=== PATIENT | male | born 1945 | race Caucasian/White ===

== ENCOUNTER 2018-03-01 06:47 | Day surgery (SDC) | payer OTHER ==
[2018-03-01] MEDS ORDERED: VERSED 5 MG/5 ML IV ONE (06:48)
[2018-03-01] MEDS ORDERED: DEMEROL 50 MG SDV IV ONE (06:48)
[2018-03-01 07:35] VITALS: PULSE 51
[2018-03-01] MEDS ORDERED: Sodium Chloride 0.9% 1000 ML 1,000 ML ONE ×2 (07:41→11:21)
[2018-03-01] MEDS ORDERED: Lactated Ringers 1,000 ML IV SCH (08:00)
[2018-03-01 12:28] VITALS: O2SAT 95
--- NOTE | 2018-03-01 12:54 | OP ---
SURGERY DATE/TIME: 03/01/2018 1117 PREOPERATIVE DIAGNOSIS: CT scan showing cecal mass. POSTOPERATIVE DIAGNOSIS: Cecal mass. PROCEDURE: Colonoscopy to cecum with cold biopsy x1. SURGEON: David Lay M.D. BACK TENDER: Medical Student III. ANESTHESIA: IV sedation 15 minutes monitored. FINDINGS: Cecal mass. Severe diverticulosis of the sigmoid. Moderate internal hemorrhoids. INDICATION: The patient has a CT with apparently a cecal mass. DESCRIPTION OF PROCEDURE: Taken to the endoscopy. Left lateral decubitus position. IV sedation titrated. Oximetry kept over 90%. Scope introduced. Scope advanced to the cecum. The ileocecal valve was basically replaced by a mass. It almost had the suggestion of ileocecal valve. but it was a little taller, a little thicker, little wider, a little firmer. 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 It still could be an extrinsic lesion bulging up the ileocecal valve but I doubt it. On circumferential withdrawal severe diverticulosis of the sigmoid, moderate internal hemorrhoids. The patient tolerated the procedure satisfactorily. The findings discussed with the family in the waiting room.
[2018-03-01 13:05] VITALS: BP 110/53
== END 2018-03-01 13:40 | disposition home or self-care (01) ==
LOC: SDC 06:47 → RT 06:47 → SDC 13:40
PROVIDERS: ATTEND Surgery
DX: K57.30 Diverticulosis of large intestine without perforation or abscess without bleeding (principal); K64.8 Other hemorrhoids; I10 Essential (primary) hypertension; I25.810 Atherosclerosis of coronary artery bypass graft(s) without angina pectoris; I73.9 Peripheral vascular disease, unspecified; I25.2 Old myocardial infarction
CPT/HCPCS: 88305; 93005; 94250; J2175; J2250